=== PATIENT | female | born 1985 | race African-American/Black ===

== ENCOUNTER 2019-08-02 01:52 | Emergency (ER) | payer MEDICAID ==
[~2019-08-02] VITALS: Ht 160 cm; Wt 62.0 kg
[2019-08-02] MEDS: HYDROCODONE/ACETAMINOPHEN 5/325MG TABLET PO ONE ×2 (03:59→04:14)
[2019-08-02] MEDS: IBUPROFEN 800MG TABLET PO ONE ×2 (04:00→04:14)
[2019-08-02] MEDS ORDERED: ONDANSETRON 4MG ODT PO ONE (04:00)
[2019-08-02 04:08] LABS: BG CARBOXYHEMOGLOBIN 0.6 % (0.5-1.5); BG DEOXYHEMOGLOBIN 2.2 % (0.0-5.0); BG FRACTION INSPIRED OXYGEN 21; BG HCO3 ACT 23.3 mmol/L (22.0-26.0); BG METHEMOGLOBIN 0.2 % (0.0-1.5); BG OXYGEN SATURATION 97.8 % (92.0-98.5); BG PCO2 37.4 mmHg (35.0-45.0); BG PH 7.412 (7.350-7.450); BG PO2 105.2 mmHg (75.0-100.0); BG SAMPLE SITE RIGHT RADIAL; BG TOTAL HEMOGLOBIN 13.1 g/dL (12.0-18.0); BG VENT MODE ROOM AIR
[2019-08-02 05:36] VITALS: BP 99/57
== END 2019-08-02 05:38 | disposition home or self-care (01) ==
LOC: ER 01:52
DX: T59.811A Toxic effect of smoke, accidental (unintentional), initial encounter (principal); J68.9 Unspecified respiratory condition due to chemicals, gases, fumes and vapors; Y92.89 Other specified places as the place of occurrence of the external cause
CPT/HCPCS: 36600; 71045; 82375; 82805; 99284; Q0162